=== PATIENT | male | born 1965 | race Two or more races ===

== ENCOUNTER 2023-10-30 13:05 | Emergency (ER) | payer OTHER ==
[~2023-10-30] VITALS: Ht 175.3 cm; Wt 91.6 kg
[2023-10-30] MEDS ORDERED: BUPROPION XL450 MG (13:28)
[2023-10-30] MEDS ORDERED: EZALLOR SPRINKLE5 MG PO (13:29)
[2023-10-30] MEDS ORDERED: ZOLPIDEM TART1.75 MG (13:29)
[2023-10-30] MEDS ORDERED: NORVASC2.5 M1 PO (13:29)
== END 2023-10-30 15:13 | disposition home or self-care (01) ==
LOC: ER 13:05
DX: G51.0 Bell's palsy (principal)